=== PATIENT | female | born 1995 | race African-American/Black ===

== ENCOUNTER 2020-06-23 23:03 | Inpatient (IN) | payer OTHER ==
[2020-06-24] MEDS ORDERED: ELECTROLYTE-148 SOLN 1,000 ML IV SCH
[2020-06-24] MEDS ORDERED: AMPICILLIN - 2 GM in SODIUM CHLORIDE 100 ML IVPB ONE
[2020-06-24] MEDS ORDERED: AMPICILLIN SODIUM 2 GM VIAL ONE (01:02)
[2020-06-24] MEDS ORDERED: SODIUM CHLORIDE 100 ML IVPB ONE ×2 (01:02→04:55)
[2020-06-24] MEDS ORDERED: PROMETHAZINE HCL 25 MG/1 ML VIAL ONE (01:03)
[2020-06-24] MEDS ORDERED: BUTORPHANOL TARTRATE 2 MG/ML VIAL ONE (01:03)
[2020-06-24 01:15] LABS: BASO % 0.3 % (0-2.0); EOS % 0.1 % (0-4.5); HEMOGLOBIN 13.2 GM/dL (10.7-15.3); LYMPH % 16.5 % (8-40); MCH 31.9 pg (25.7-33.7); MCHC 33.1 g/dl (32.0-36.0); MEAN CELL VOLUME 96.4 fl (80-96); MEAN PLT VOLUME 11.3 fl (7.5-11.1); MONO % 7.2 % (3.8-10.2); NEUT % 75.9 % (42.8-82.8); PLATELET COUNT 159 K/MM3 (134-434); RBC 4.15 M/mm3 (3.60-5.2); RDW 13.8 % (11.6-15.6); WHITE BLOOD COUNT 11.9 K/mm3 (4.0-10.0)
[2020-06-24 01:25] LABS: INR 0.92 (0.83-1.09); PROTHROMBIN TIME (PATIENT) 10.9 SEC (9.7-13.0)
[2020-06-24 01:28] LABS: ACTIVATED PTT 22.6 SECONDS (25.2-36.5)
[2020-06-24 01:30] LABS: BLOOD UREA NITROGEN 4.8 mg/dL (7-18); CALCIUM 9.1 mg/dL (8.5-10.1); CREATININE 0.5 mg/dL (0.55-1.3); POTASSIUM 4.1 mmol/L (3.5-5.1)
[2020-06-24 01:38] VITALS: BMI 31.1
[2020-06-24] MEDS ORDERED: BUTORPHANOL TARTRATE 1 MG/ML VIAL IVPB ONE (02:15)
[2020-06-24] MEDS ORDERED: PROMETHAZINE HCL 25 MG/1 ML VIAL IVPB ONE (02:15)
[2020-06-24] MEDS ORDERED: AMPICILLIN SODIUM 1 GM VIAL ONE ×3 (04:55→12:05)
[2020-06-24] MEDS: AMPICILLIN - 1 GM in SODIUM CHLORIDE 100 ML IVPB SCH ×5 (05:00→19:09)
[2020-06-24] MEDS ORDERED: OXYTOCIN 30 UNITS in 0.9% NS 30 UNIT/500 ML INFUS.BAG IVPB ONE (07:43)
[2020-06-24] MEDS ORDERED: OXYTOCIN 30 UNITS in 0.9% NS 30 UNIT/500 ML INFUS.BAG IVPB SCH (07:45)
[2020-06-24] MEDS ORDERED: PCA PUMP NR ONE (07:54)
[2020-06-24] MEDS ORDERED: FENTANYL/BUPIVACAINE/NS/PF - PCEA - 50 ML DISP.SYRIN EP ONE ×2 (07:55→12:59)
[2020-06-24] MEDS ORDERED: NALOXONE HCL 0.4 MG/ML VIAL IVPUSH PRN (07:57)
[2020-06-24] MEDS ORDERED: FENTANYL/BUPIVACAINE/NS/PF - PCEA - 50 ML DISP.SYRIN EP SCH (08:00)
[2020-06-24] MEDS ORDERED: BUPIVACAINE HCL/PF 0.25% (2.5MG/ML) 10 ML VIAL ONE (08:00)
[2020-06-24] MEDS ORDERED: OXYTOCIN 20 UNITS in 0.9% NS 20 UNIT/1,000 ML INFUS.BAG IV ONE (13:43)
[2020-06-24] MEDS ORDERED: BUPIVACAINE HCL/PF 0.5% (5MG/ML) 10 ML VIAL ONE (14:33)
[2020-06-24] MEDS ORDERED: BENZOCAINE 20% 57 GM BOTTLE TP PRN (16:51)
[2020-06-24] MEDS ORDERED: WITCH HAZEL 50% (TUCKS) 40 PAD/JAR PAD TP PRN (16:51)
[2020-06-24] MEDS ORDERED: BISACODYL 10 MG SUPP.RECT RC PRN (16:51)
[2020-06-24] MEDS ORDERED: BENZOCAINE 28 GM HEMORRHOIDAL OINTMENT TP PRN (16:51)
[2020-06-24] MEDS ORDERED: METHYLERGONOVINE MALEATE 0.2 MG/1 ML AMP IM PRN (16:51)
--- NOTE | 2020-06-24 16:51 | PN ---
Delivery - Delivery Vaginal Delivery: No Problems Type of Anesthesia: Epidural Episiotomy/Laceration: 1st degree EBL (cc): 200 Delivery, Single - Feeding Plan Initial Plan: Elected not to breastfeed exclusively throughout hospitalization
[2020-06-24] MEDS ORDERED: OXYTOCIN 20 UNITS in 0.9% NS 20 UNIT/1,000 ML INFUS.BAG IV SCH (17:00)
[2020-06-24] MEDS ORDERED: IBUPROFEN 600 MG TABLET (FP) PO ONE (18:09)
[2020-06-24] MEDS ORDERED: ACETAMINOPHEN 325 MG TABLET (FP) ONE (18:09)
[2020-06-24] MEDS: ACETAMINOPHEN 325 MG TABLET (FP) PO PRN (18:15)
[2020-06-24] MEDS: IBUPROFEN 600 MG TABLET (FP) PO PRN (18:15)
--- NOTE | 2020-06-24 19:06 | PN ---
Progress Note (short form) - Note Progress Note: diastolic BP's in the 90's one 100 plan proivcardia XL 60 mg daily.
[2020-06-24] MEDS: NIFEdipine E.R 60 MG TABLET PO SCH (20:04)
[2020-06-25] MEDS: ACETAMINOPHEN 325 MG TABLET (FP) PO PRN (03:08)
[2020-06-25] MEDS: IBUPROFEN 600 MG TABLET (FP) PO PRN (03:08)
[2020-06-25 09:05] LABS: BASO % 0.3 % (0-2.0); EOS % 0.2 % (0-4.5); HEMATOCRIT 34.6 % (32.4-45.2); HEMOGLOBIN 11.2 GM/dL (10.7-15.3); LYMPH % 17.6 % (8-40); MCH 31.2 pg (25.7-33.7); MCHC 32.4 g/dl (32.0-36.0); MEAN CELL VOLUME 96.3 fl (80-96); MEAN PLT VOLUME 10.9 fl (7.5-11.1); NEUT % 74.9 % (42.8-82.8); PLATELET COUNT 131 K/MM3 (134-434); RDW 14.3 % (11.6-15.6)
[2020-06-25] MEDS: NIFEdipine E.R 60 MG TABLET PO SCH (10:53)
--- NOTE | 2020-06-25 11:38 | PN ---
Post Progress Note - Subjective Subjective: Denies any complaints. No headache, blurry vision or epigastric pain Post Day: 1 Type of Delivery: Vital Signs: Vital Signs Temperature 98.2 F 06/25/20 09:36 Pulse Rate 74 06/25/20 09:36 Respiratory Rate 20 06/25/20 09:36 Blood Pressure 113/77 06/25/20 09:36 O2 Sat by Pulse Oximetry (%) 100 06/25/20 09:36 Breast Exam: Yes: Soft Uterus: Yes: Fundus Firm Abdomen/GI: Yes: Abdomen soft Lochia: Yes: Rubra Lochia, amount: Small Extremities: Yes: Calves non-tender (Transient elevation of BP, now resolved) - Labs Labs: CBC WBC 19.0 K/mm3 (4.0-10.0) H 06/25/20 08:09 RBC 3.60 M/mm3 (3.60-5.2) 06/25/20 08:09 Hgb 11.2 GM/dL (10.7-15.3) 06/25/20 08:09 Hct 34.6 % (32.4-45.2) 06/25/20 08:09 MCV 96.3 fl (80-96) H 06/25/20 08:09 MCH 31.2 pg (25.7-33.7) 06/25/20 08:09 MCHC 32.4 g/dl (32.0-36.0) 06/25/20 08:09 RDW 14.3 % (11.6-15.6) 06/25/20 08:09 Plt Count 131 K/MM3 (134-434) L 06/25/20 08:09 MPV 10.9 fl (7.5-11.1) 06/25/20 08:09 Absolute Neuts (auto) 14.2 K/mm3 (1.5-8.0) H 06/25/20 08:09 Neutrophils % 74.9 % (42.8-82.8) 06/25/20 08:09 Lymphocytes % 17.6 % (8-40) 06/25/20 08:09 Monocytes % 7.0 % (3.8-10.2) 06/25/20 08:09 Eosinophils % 0.2 % (0-4.5) D 06/25/20 08:09 Basophils % 0.3 % (0-2.0) 06/25/20 08:09 Nucleated RBC % 0 % (0-0) 06/25/20 08:09 Assessment/Plan PP day 1 Transient elevation of BP, now resolved without medication PLT decreased, no LFTs available Will repeat labs in afternoon Monitor vital signs Discharge tomorrow in AM
[2020-06-25] MEDS ORDERED: FLU VACCINE (FLULAVAL) PF 60 MCG/0.5 ML SYRINGE 2020-2021 IM ONE (16:00)
[2020-06-25] MEDS ORDERED: DIPHTH,PERTUSS(ACELL),TET 0.5 ML DISP.SYRIN IM ONE (16:00)
[2020-06-25] MEDS ORDERED: SENNOSIDES/DOCUSATE COMBO (SENNA PLUS) TABLET (UD) PO PRN (22:00)
[2020-06-26 08:38] LABS: BASO % 0.3 % (0-2.0); EOS % 0.5 % (0-4.5); HEMATOCRIT 37.8 % (32.4-45.2); HEMOGLOBIN 12.6 GM/dL (10.7-15.3); LYMPH % 20.2 % (8-40); MCH 32.6 pg (25.7-33.7); MCHC 33.4 g/dl (32.0-36.0); MEAN CELL VOLUME 97.6 fl (80-96); MEAN PLT VOLUME 10.8 fl (7.5-11.1); MONO % 5.9 % (3.8-10.2); NEUT % 73.1 % (42.8-82.8); PLATELET COUNT 147 K/MM3 (134-434); RBC 3.87 M/mm3 (3.60-5.2); RDW 14.2 % (11.6-15.6); WHITE BLOOD COUNT 14.7 K/mm3 (4.0-10.0)
[2020-06-26 09:01] LABS: ALBUMIN 2.3 g/dl (3.4-5.0); BILIRUBIN,TOTAL 0.4 mg/dL (0.2-1); BLOOD UREA NITROGEN 7.2 mg/dL (7-18); CALCIUM 8.6 mg/dL (8.5-10.1); CREATININE 0.6 mg/dL (0.55-1.3); POTASSIUM 3.8 mmol/L (3.5-5.1)
[2020-06-26] MEDS: ACETAMINOPHEN 325 MG TABLET (FP) PO PRN (10:23)
[2020-06-26] MEDS: IBUPROFEN 600 MG TABLET (FP) PO PRN (10:24)
--- NOTE | 2020-06-26 11:50 | DS ---
Physical Exam-[employer] Vital Signs: Vital Signs Temperature 98.4 F 06/25/20 21:41 Pulse Rate 81 06/25/20 21:41 Respiratory Rate 18 06/25/20 21:41 Blood Pressure 121/84 06/25/20 21:41 O2 Sat by Pulse Oximetry (%) 99 06/25/20 14:29 Constitutional: Yes: Calm Cardiovascular: Yes: WNL Respiratory: Yes: WNL Gastrointestinal: Yes: Normal Bowel Sounds, Soft ....Post : Yes: Uterus firm, Slight lochia rubra Breast(s): Yes: WNL Edema: No Labs: CBC, BMP 06/26/20 07:55 06/26/20 07:55 Delivery - Delivery Vaginal Delivery: No Problems Type of Anesthesia: Epidural Episiotomy/Laceration: 1st degree EBL (cc): 200 Delivery, Single - Stages of Labor Date 1st Stage Initiatied: 06/24/20 Time 1st Stage Initiated: 01:30 Date 2nd Stage Initiated: 06/24/20 Time 2nd Stage Initiated: 16:30 Date of Delivery: 06/24/20 Time of Delivery: 16:42 Time Placenta Delivered: 16:50 - 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 Gender: Female Weight: 3.147 kg Position: Left, OA Total Hours ROM (Hrs/Mins): 7Hrs/0MIns - 1 Minute Total Score: 9 5 Minutes Total Score: 9 - [place] Feeding Plan Initial Plan: Elected not to breastfeed exclusively throughout hospitalization Discharge Summary Problems reviewed: Yes Reason For Visit: LABOR ADMIT Procedures: Principal: Plan of Treatment: follow up 6 wks Condition: Good - Instructions Diet, Activity, Other Instructions: regular Disposition: HOME - Home Medications Comprehensive Discharge Medication List: Ambulatory Orders Pnv No.95/Ferrous Fum/Folic AC [ Vitamin Tablet] 1 each PO DAILY 06/02/20
[2020-06-26 12:29] VITALS: BP 123/82; PULSE 91; TEMP 98.3
== END 2020-06-26 16:00 | disposition home or self-care (01) | DRG 807 ==
LOC: JDEL 23:03 → JLDR 06-24 → J3W 06-24 20:20
PROVIDERS: ADMIT Specialist; ATTEND Specialist
PROC: 10E0XZZ Delivery of Products of Conception, External Approach (ICD-10-PCS; principal; 2020-06-24)
DX: O70.0 First degree perineal laceration during delivery (principal); Z37.0 Single live birth; Z3A.39 39 weeks gestation of pregnancy
CPT/HCPCS: 36415; 59409; 80048; 80053; 85025; 85610; 85730; 86780; 86850; 86900; 86901; 90715; C9803; Q2036; U0003